=== PATIENT | female | born 1960 | race Caucasian/White ===

== ENCOUNTER 2019-01-10 13:58 | Emergency (ER) | payer OTHER, SELFPAY ==
--- NOTE | 2019-01-10 14:11 | ED.RN ---
pt arrives to ed with possible fracture to left elbow. she was asked to take a seat in the waiting are while I finished checking another patient in. after finishing triage she was brought into the room to start triage process. during questing about thought of self harm or thoughts of harming others she stated im having thought of harming you if you don't hurry up. triage process was stopped and pt was escorted to a room. technical intern, security, and hro made aware. gilmer rodrigez rn [id number]
[2019-01-10 14:18] VITALS: PULSE 80; RESP 16; TEMP 37.3; O2SAT 98; BMI 26.4
--- NOTE | 2019-01-10 14:29 | RAD_ITS ---
STUDY: X-RAY - LEFT HUMERUS REASON FOR EXAM: Female, 58 years old. Left arm pain after falling today TECHNIQUE: AP and lateral view(s) of the humerus. COMPARISON: None. FINDINGS: Normal visualized humerus. There is no demonstrated fracture or osseous destructive process. There is a fixation screw of the olecranon. There is no demonstrated soft tissue abnormality. RAD/Humerus min 2 Views IMPRESSION: No fracture or malalignment. Electronically Signed: Anthony Rojas MD ([facility]) at 15:11 EDT , Service support ,
--- NOTE | 2019-01-10 14:31 | ED.DCSUM_ITS ---
History of Present Illness Chief Complaint: Upper Extremity Injury Detail of Chief Complaint: Left elbow injury Informant: Patient Onset: Today Context: Sudden Onset Current Severity: Moderate Maximum Severity: Severe Narrative: Patient presents after getting her foot caught and falling, landing on her left elbow. She has pain and deformity noted to the elbow. She had prior Monteggia fracture of the left forearm. She states there is still some hardware in place. She denies pain at the shoulder or wrist. She has some abrasions to the lower extremities but denies any other significant injury. Past Medical History - Allergies and Home Meds Allergies/Adverse Reactions: Allergies No Known Allergies Allergy (Verified 01/10/19 14:26) Primary Care Physician: Maxime Sumner MD [NON-STAFF] - Prior records reviewed: Yes Past Medical History: - - Reviewed Lives: Spouse/ Significant Other Smoking Status: Former smoker Review of Systems General: Denies: Chills, Fever Eyes: Denies: Visual changes - bilaterally ENT: Denies: Bilateral ear pain Cardiovascular: Denies: Chest pain Respiratory: Denies: Dyspnea Gastrointestinal: Denies: Abdominal pain Musculoskeletal: Reports: Arthralgias. Denies: Neck pain Skin: Reports: Abrasions Neurological: Denies: Headache Hematologic: Denies: Easy bruising Allergy: Denies: Uticaria Physical Exam Vital Signs/Narrative: Vital Signs Temp Pulse Resp Pulse Ox 01/10/19 14:18 99.2 F H 80 16 98 Inital Vital Signs reviewed: Yes General: Well nourished, Well developed Head: Normocephalic ENT: Moist mucous membranes Neck: Supple, Nontender, - - No C-spine tenderness. Cardiovascular: Regular rate, Regular rhythm Respiratory: No distress, CTA bilaterally Abdomen: Soft, Nontender Extremities: - - Mild tenderness to palpation over the proximal to mid humerus. Significant tenderness with palpation around the left elbow with palpable deformity consistent with an elbow dislocation. Strong radial pulses noted. She can wiggle fingers. Skin: - - Superficial linear abrasions noted to the lower extremities with no bony tenderness. Neurological: Alert, Oriented x3 Psychological: Normal affect Diagnostic/Tx/Re-eval Impressions Humerus X-Ray 01/10/19 14:29 IMPRESSION: No fracture or malalignment. Electronically Signed: Anthony Rojas MD ([place]) at 15:11 EDT , Service support , Left Elbow x-ray IMPRESSION: Posterior dislocation of the radial head. Prior proximal ulnar fracture with hardware and tracks from hardware and/or recent fracture. Electronically Signed: Adrián Santiago MD at 15:41 EDT , Service support , - Medical Decision Making She was given morphine and Zofran on arrival followed by Dilaudid for pain. X- rays indicate a posterior radial head dislocation. Patient was consented for procedural sedation. She was given propofol and aliquots to achieve adequate sedation. Left elbow was extended with traction. Arm was splinted in 90 degree elbow flexion. I did not feel good reduction, however repeat x-rays appear to reveal significant improvement in radial head position. Prior to splint application patient had good cap refill distally with strong radial pulse. This will be checked out to oncoming physician for final read. If the patient's elbow is adequately reduced she will be discharged home with pain medication and will follow-up with Dr. burkett in [place] whom she has seen in the past. If elbow is still not adequately reduced she will be transferred to 1 of the ED's in [place] to be seen by orthopedics. Patient and are aware of this plan and are in agreement. ED Disposition - Plan for ED Patient: Disposition: Home or Assisted Living Diagnosis: Dislocation of radial head, left, closed Instructions: Elbow Dislocation Prescriptions: Oxycodone HCl/Acetaminophen [Percocet 5/325] 1 tablet PO Q6H PRN PRN 5 Days #20 tablet PRN Reason: Pain Referrals: Dani Burkett III, MD [NON-STAFF] - 5-7 Days
[2019-01-10] MEDS: 0.9% Normal Saline 1,000 ML 150 ML IV (14:35)
[2019-01-10] MEDS: Ondansetron 4 MG/2 ML Vial IV (14:36)
[2019-01-10] MEDS: Morphine 4 MG/ML Syringe IV (14:37)
--- NOTE | 2019-01-10 15:08 | RAD_ITS ---
STUDY: X-RAY - LEFT ELBOW REASON FOR EXAM: Female, 58 years old. Pain. Deformity. TECHNIQUE: 3 view(s) of the elbow. COMPARISON: None. FINDINGS: Normal visualized humerus. There is postoperative change of the proximal ulna with hardware at the olecranon. There are lucencies of the proximal shaft with artifact from hardware that has been removed and/or recent fracture. There is posterior dislocation of the radial head. There is posterior soft tissue swelling. RAD/Elbow 2 Views IMPRESSION: Posterior dislocation of the radial head. Prior proximal ulnar fracture with hardware and tracks from hardware and/or recent fracture. Electronically Signed: Adrián Santiago MD at 15:41 EDT , Service support ,
[2019-01-10] MEDS: HYDROmorphone 0.5 MG/0.5 ML SYRINGE IV (15:21)
[2019-01-10 15:47] VITALS: BP 127/94; BP 176/88; BP 183/93; BP 184/93; PULSE 49; PULSE 72; PULSE 73; PULSE 75; RESP 13; RESP 14; RESP 15; RESP 18; O2SAT 100; O2SAT 94; O2SAT 96
[2019-01-10 15:52] VITALS: BP 148/84; PULSE 74; RESP 13; O2SAT 100
[2019-01-10 15:57] VITALS: BP 136/77; PULSE 72; RESP 18; O2SAT 96
--- NOTE | 2019-01-10 15:58 | RAD_ITS ---
STUDY: X-RAY - LEFT RADIUS AND ULNA REASON FOR EXAM: Female, 58 years old. Pain after a fall. TECHNIQUE: 2 view(s) of the forearm. COMPARISON: None. FINDINGS: Nondisplaced nonacute fracture seen of the proximal ulnar shaft. The shaft of the orthopedic screw is seen in the olecranon process. On these images, there is concern for dislocation of the radiohumeral joint. There is proximal dorsal soft tissue swelling. RAD/Forearm 2 Views IMPRESSION: Nondisplaced fracture of the ulnar shaft. There appears to be radiohumeral dislocation. Electronically Signed: Glenn Mccullough MD at 18:55 EDT , Service support ,
--- NOTE | 2019-01-10 17:00 | RAD_ITS ---
STUDY: X-RAY - LEFT ELBOW REASON FOR EXAM: Female, 58 years old. Post reduction TECHNIQUE: 3 view(s) of the elbow. COMPARISON: None. FINDINGS: The splint obscures bone detail, and the exam is markedly limited by suboptimal, unconventional positioning. Fractures seen through the proximal ulnar shaft, with slightly improved apposition of the fragments since previous exam. No angulation. Again seen is the remains of the shaft of an orthopedic screw in the left renal process from previous surgery. Grossly normal visualized distal humerus and proximal ulna. RAD/Elbow 2 Views IMPRESSION: Limited exam. Fracture of the proximal ulnar shaft is in near anatomic alignment and position. Electronically Signed: lGenn Mccullough MD at 17:25 EDT , Service support ,
--- NOTE | 2019-01-10 17:10 | ED.RN ---
[id number] consent signed per pt with no questions voiced. mod sedation done and pt lorenza well but dr. jensen unable to reduce dislocated lt elbow. family updated
[2019-01-10 17:12] VITALS: BP 156/103; PULSE 73; RESP 15; O2SAT 98
[2019-01-10] MEDS: Propofol 200 MG/20 ML Vial IV BOLUS (17:23)
[2019-01-10] MEDS: oxyCODONE 5 MG Tablet PO (18:38)
[2019-01-10 18:48] VITALS: BP 148/79; PULSE 67; RESP 16; O2SAT 98
== END 2019-01-10 18:50 | disposition home or self-care (01) ==
PROVIDERS: Emergency Provider Emergency Medicine
DX: S53.025A Posterior dislocation of left radial head, initial encounter (principal); S80.812A Abrasion, left lower leg, initial encounter; S80.811A Abrasion, right lower leg, initial encounter; W01.10XA Fall on same level from slipping, tripping and stumbling with subsequent striking against unspecified object, initial encounter; Y93.9 Activity, unspecified; Y92.9 Unspecified place or not applicable; Y99.9 Unspecified external cause status; Z87.891 Personal history of nicotine dependence
CPT/HCPCS: 24600; 73060; 73070; 73090; 96361; 96374; 96375; 99285; J7030; A4216; J2405